=== PATIENT | female | born 1955 | race Caucasian/White ===

== ENCOUNTER → 2017-06-15 | Day surgery (SDC) | payer OTHER ==
[~2017-06-15] VITALS: Ht 162.6 cm; Wt 61.2 kg
[~2017-06-15] MED LIST: 0.9% Sodium Chloride 1,000 ML IV SCH; AMLO5TAB2 PO; ESTR1TAB24 PO; Sodium Chloride LOK Flush 10 mL Syringe IV PRN; VENL25TA4 PO; fentaNYL-PF 50 mCg/mL 2 mL Inj IVPUSH PRN
[2017-06-15 11:03] VITALS: BP 165/92; PULSE 77; RESP 12; O2SAT 97
[2017-06-15 12:01] VITALS: BP 100/65; PULSE 65; RESP 14; O2SAT 96
[2017-06-15 12:15] VITALS: BP 110/58; PULSE 64; RESP 14; O2SAT 95
--- NOTE | 2017-06-15 14:48 | ENDO ---
[address] [address] ENDOSCOPY PROCEDURE PATIENT: VANESSA TREVIÑO : 1955 MR#: [id number] ADMIT: 06/15/2017 JOB ID: [id number] DATE OF SERVICE: 06/15/2017 TYPE OF OPERATION: Colonoscopy with hot snare polypectomy and biopsy. PREOPERATIVE DIAGNOSIS(ES): Rectal cancer. POSTOPERATIVE DIAGNOSIS(ES): 1. A 5 mm ascending colon polyp, removed by hot snare polypectomy. 2. No anastomosis was seen from prior anal cancer surgery in the rectum. The rectum was biopsied. ANESTHESIA: Fentanyl 200 mcg, Versed 8 mg IV administered. COMPLICATIONS: None. BLOOD LOSS: Minimal. DESCRIPTION OF PROCEDURE: After risks and benefits explained to the patient, informed consent was obtained. After anesthesia administered, colonoscope was then inserted from the rectum to the cecum. Mucosa carefully examined. Prep of the patient was excellent. After procedure was done, scope withdrawn and procedure terminated. FINDINGS: Upon inspection of the anus, no masses, hemorrhoids, ulcers, or fissures that were seen. Throughout the entire examination, there was a 5 mm ascending colon polyp, removed by hot snare polypectomy. No anastomosis was seen throughout the entire examination. Biopsies taken in the rectum. Retroflexion was normal. IMPRESSION: 1. A 5 mm ascending colon polyp, removed by hot snare polypectomy. 2. No anastomosis was seen from prior surgery. The rectum was biopsied. RECOMMENDATION: Await pathology results. Repeat colonoscopy in five years, given her history of rectal cancer.
--- NOTE | 2017-06-21 10:54 | PATH ---
SURGICAL PATHOLOGY Attending Physician:Dayday Chatterjee MD CASE STATUS: Signed Out PATIENT NAME: VANESSA TREVIÑO PID: [id number] : 1955 DATE COLLECTED:06/15/2017 20:39 SPECIMEN: 1: Colon, Polyp 2: Rectum, Biopsy CLINICAL HISTORY: 1). ASCENDING POLYP X 1 2). RECTAL BIOPSY FINAL DIAGNOSIS: 1. Ascending Colon Polyp, Biopsy: Sessile serrated adenoma. 2. Rectum, Biopsy: Normal rectal mucosa. Negative for inflammation, granulomas, dysplasia, and malignancy. ICD10: D12.6 GROSS DESCRIPTION: The specimen is received in two formalin filled containers labeled with the patient's name. 1). The specimen is labeled "ascend" and consists of a 0.4 x 0.3 x 0.2 CM portion of tissue which is entirely submitted in cassettes 1A. 2). The specimen is labeled "rectal" and consists of a 0.1 x 0.1 x 0.1 CM portion of tissue which is entirely submitted in cassette 2A. 06/15/2017DC ICD-9 CODES: CPT CODES: 1: 48361 2: 72435 Electronically Signed Out Casimiro Hart MD, PhD [facility], [place] [address] Technical component performed at [facility] [address], [place], [address]
== END | disposition home or self-care (01) ==
LOC: END 00:49
PROVIDERS: ATTEND Internal Medicine Gastroenterology
DX: Z12.11 Encounter for screening for malignant neoplasm of colon (principal); D12.2 Benign neoplasm of ascending colon; Z85.048 Personal history of other malignant neoplasm of rectum, rectosigmoid junction, and anus; I10 Essential (primary) hypertension; F41.9 Anxiety disorder, unspecified
CPT/HCPCS: 45380; 45385; G0500; J2250; J3010; J7030